=== PATIENT | female | born 1925 | race African-American/Black ===

== ENCOUNTER 2017-04-25 13:50 | Inpatient (IN) | payer MEDICARE, BC ==
[~2017-04-25] VITALS: Ht 172.7 cm; Wt 59.0 kg
[2017-04-25] MEDS ORDERED: LACTULOSE 20G/30ML UDC PO PRN (15:00)
[2017-04-25] MEDS ORDERED: ACETAMINOPHEN 500MG TABLET PO PRN (15:00)
[2017-04-25 18:12] VITALS: BP 132/82
[2017-04-25 18:20] VITALS: BP 132/82
[2017-04-25 20:00] VITALS: BP 110/55
[2017-04-25 21:07] LABS: VITAMIN B12 SERUM 839 pg/mL (211-911)
[2017-04-25] MEDS: ATORVASTATIN CALCIUM 20MG TABLET PO SCH (21:30)
[2017-04-26 08:00] VITALS: BP 135/68
[2017-04-26] MEDS: AMLODIPINE 5MG TABLET PO SCH (08:53)
[2017-04-26] MEDS: DOCUSATE SODIUM 250MG CAPSULE PO SCH (08:53)
[2017-04-26] MEDS: LEVOFLOXACIN 250MG TABLET PO SCH (11:38)
[2017-04-26 20:49] VITALS: BP 113/50
[2017-04-26] MEDS: ATORVASTATIN CALCIUM 20MG TABLET PO SCH (21:11)
[2017-04-27] MEDS ORDERED: LEVOTHYROXINE SODIUM 25MCG TABLET PO SCH (07:00)
[2017-04-27 08:00] VITALS: BP 142/73
[2017-04-27] MEDS: DOCUSATE SODIUM 250MG CAPSULE PO SCH (08:40)
[2017-04-27] MEDS: AMLODIPINE 5MG TABLET PO SCH (08:41)
[2017-04-27] MEDS: LEVOFLOXACIN 250MG TABLET PO SCH (12:17)
[2017-04-27 20:00] VITALS: BP 135/69
[2017-04-27] MEDS: ATORVASTATIN CALCIUM 20MG TABLET PO SCH (21:07)
[2017-04-28] MEDS: LEVOTHYROXINE SODIUM 50MCG TABLET PO SCH (06:21)
[2017-04-28] MEDS: AMLODIPINE 5MG TABLET PO SCH (09:49)
[2017-04-28] MEDS: DOCUSATE SODIUM 250MG CAPSULE PO SCH (09:49)
[2017-04-28] MEDS: LEVOFLOXACIN 250MG TABLET PO SCH (11:52)
[2017-04-28 20:00] VITALS: BP 105/62
[2017-04-28] MEDS: ATORVASTATIN CALCIUM 20MG TABLET PO SCH (21:27)
[2017-04-29] MEDS: LEVOTHYROXINE SODIUM 50MCG TABLET PO SCH (06:28)
[2017-04-29 08:00] VITALS: BP 114/63
[2017-04-29] MEDS: AMLODIPINE 5MG TABLET PO SCH (09:00)
[2017-04-29] MEDS: DOCUSATE SODIUM 250MG CAPSULE PO SCH (09:56)
[2017-04-29] MEDS: LEVOFLOXACIN 250MG TABLET PO SCH (10:02)
[2017-04-29 20:00] VITALS: BP 113/68
[2017-04-29] MEDS: ATORVASTATIN CALCIUM 20MG TABLET PO SCH (20:02)
[2017-04-29 20:07] LABS: CLARITY URINE CLOUDY (CLEAR); COLOR URINE YELLOW (YELLOW); GLUCOSE URINE NEGATIVE (NEGATIVE); KETONES URINE NEGATIVE (NEGATIVE); LEUKOCYTE ESTERASE URINE 3+ (NEGATIVE); NITRITE URINE NEGATIVE (NEGATIVE); OCCULT BLOOD URINE 2+ (NEGATIVE); PH URINE >=9.0 (4.5-8.0); PROTEIN URINE 4+ (NEGATIVE); SPECIFIC GRAVITY URINE 1.021 (1.005-1.030); UROBILINOGEN URINE 0.2 E.U./dL (0.2-1.0)
[2017-04-30] MEDS: LEVOTHYROXINE SODIUM 50MCG TABLET PO SCH (06:19)
[2017-04-30 08:00] VITALS: BP 127/65
[2017-04-30] MEDS: DOCUSATE SODIUM 250MG CAPSULE PO SCH (09:00)
[2017-04-30] MEDS: AMLODIPINE 5MG TABLET PO SCH (09:00)
[2017-04-30] MEDS: LEVOFLOXACIN 250MG TABLET PO SCH (11:00)
[2017-04-30 20:00] VITALS: BP 108/66
[2017-04-30] MEDS: ATORVASTATIN CALCIUM 20MG TABLET PO SCH (21:46)
[2017-05-01] MEDS: LEVOTHYROXINE SODIUM 50MCG TABLET PO SCH (06:37)
[2017-05-01 08:06] VITALS: BP 117/58
[2017-05-01] MEDS: DOCUSATE SODIUM 250MG CAPSULE PO SCH (08:55)
[2017-05-01] MEDS: AMLODIPINE 5MG TABLET PO SCH (08:56)
[2017-05-01] MEDS: LEVOFLOXACIN 250MG TABLET PO SCH (10:39)
[2017-05-01 13:28] LABS: BASOPHILS % 0.6 % (0.0-2.0); EOSINOPHILS % 3.5 % (0.0-5.0); HEMATOCRIT. 35.3 % (36.0-48.0); HEMOGLOBIN. 11.4 g/dL (12.0-16.0); LYMPHOCYTES % 15.6 % (20.0-50.0); MEAN CORPUSCULAR HEMOGLOBIN 25.5 pg (28.0-32.0); MEAN CORPUSCULAR VOLUME 79.2 fL (81.0-99.0); NEUTROPHILS % 69.3 % (40.0-76.0); PLATELET 314 x1000/uL (130-400); RED BLOOD CELL COUNT 4.46 mill/uL (4.2-5.4); RED CELL DISTRIBUTION WIDTH 14.6 % (11.6-14.6)
[2017-05-01 13:49] LABS: CARBON DIOXIDE 28 mEq/L (21-32); CHLORIDE 106 mEq/L (98-107)
[2017-05-01 20:00] VITALS: BP 122/62
[2017-05-01] MEDS: ATORVASTATIN CALCIUM 20MG TABLET PO SCH (21:41)
[2017-05-02] MEDS: LEVOTHYROXINE SODIUM 50MCG TABLET PO SCH (06:44)
[2017-05-02 08:00] VITALS: BP 142/76
[2017-05-02] MEDS: DOCUSATE SODIUM 250MG CAPSULE PO SCH (08:38)
[2017-05-02] MEDS: AMLODIPINE 5MG TABLET PO SCH (08:38)
[2017-05-02] MEDS: LEVOFLOXACIN 250MG TABLET PO SCH (10:29)
[2017-05-02 20:00] VITALS: BP 122/62
[2017-05-02] MEDS: ATORVASTATIN CALCIUM 20MG TABLET PO SCH (21:15)
[2017-05-03] MEDS: LEVOTHYROXINE SODIUM 50MCG TABLET PO SCH (06:37)
[2017-05-03 08:00] VITALS: BP 136/87
[2017-05-03] MEDS: DOCUSATE SODIUM 250MG CAPSULE PO SCH (08:39)
[2017-05-03] MEDS: AMLODIPINE 5MG TABLET PO SCH (08:40)
[2017-05-03] MEDS: LEVOFLOXACIN 250MG TABLET PO SCH (11:24)
[2017-05-03 12:31] VITALS: BP 136/87
== END 2017-05-03 15:15 | DRG 552 ==
PROVIDERS: ADMIT Psychiatry & Neurology Neurology; ATTEND Internal Medicine
DX: M47.816 Spondylosis without myelopathy or radiculopathy, lumbar region (principal); K56.7 Ileus, unspecified; N39.0 Urinary tract infection, site not specified; L03.116 Cellulitis of left lower limb; L03.115 Cellulitis of right lower limb; M47.812 Spondylosis without myelopathy or radiculopathy, cervical region; D63.8 Anemia in other chronic diseases classified elsewhere; H91.90 Unspecified hearing loss, unspecified ear; M19.011 Primary osteoarthritis, right shoulder; M19.012 Primary osteoarthritis, left shoulder; M17.0 Bilateral primary osteoarthritis of knee; R26.89 Other abnormalities of gait and mobility; I10 Essential (primary) hypertension; R26.9 Unspecified abnormalities of gait and mobility; I87.2 Venous insufficiency (chronic) (peripheral); R32 Unspecified urinary incontinence; I87.8 Other specified disorders of veins; R29.6 Repeated falls; E03.9 Hypothyroidism, unspecified; M51.36 Other intervertebral disc degeneration, lumbar region; M50.30 Other cervical disc degeneration, unspecified cervical region; Z88.0 Allergy status to penicillin; Z91.018 Allergy to other foods; Z87.440 Personal history of urinary (tract) infections; Z86.73 Personal history of transient ischemic attack (TIA), and cerebral infarction without residual deficits
CPT/HCPCS: 36415; 70450; 70551; 74000; 76770; 80048; 81001; 82607; 84443; 85025; 87077; 87086; 92523; 93970; 97110; 97112; 97162; 97166; 97530; 97532; 97535; A4565; A6261; A4315